=== PATIENT | male | born 1990 | race Two or more races ===

== ENCOUNTER 2025-03-17 01:09 | Emergency (ER) | payer OTHER ==
[~2025-03-17] VITALS: Ht 185.4 cm; Wt 136.4 kg
--- NOTE | 2025-03-17 01:40 | ED.PDOC ---
History of Present Illness HPI Comments This is a 35-year-old male who comes in with chief complaint of some slurred speech and facial droop with altered mental status. According to the family, they noticed that the patient was somewhat altered last night and then approximately 2 hours ago they woke up with the patient he was still somewhat altered. 911 was called and the patient was transported to our facility. Upon arrival, the patient is not really answering our questions appropriately. The paramedics state that he had pinpoint pupils and they did give him some Narcan without any significant relief. Time Seen by MD: 01:32 Reviewed Notes: Nurses Notes, Eclectic Doctor Notes, Medications, Allergies (No allergies to medications) Allergies: Coded Allergies: NO KNOWN ALLERGIES (Unverified , 03/17/25) Information Source: Patient, Emergency Med Personnel Mode of Arrival: EMS Severity: Moderate Timing: Hours (Symptoms started 2 hours ago) Duration: Since onset Prehospital treatment: Accucheck (Accu-Chek was 84), Fishing Rod Trimmer, IVF, Other (Narcan IV push) Associated signs and symptoms No associated chest pain or shortness for breath Past Medical History PAST MEDICAL HISTORY: HTN Surgical History: Denies all surgeries Surgical History (Other): Unknown surgical history Family History Family History: Reviewed,noncontributory to illness Social History Smoker: Cigarettes Alcohol: Denies ETOH Use Drugs: Denies Drug Use Lives In: Home Constitutional: denies: chills, diaphoresis, fatigue, fever, malaise, sweats, weakness, others EENTM: denies: blurred vision, double vision, ear bleeding, ear discharge, ear drainage, ear pain, ear ringing, eye pain, eye redness, hearing loss, mouth pain, mouth swelling, nasal discharge, nose bleeding, nose congestion, nose pain, photophobia, tearing, throat pain, throat swelling, voice changes, others Respiratory: denies: cough, hemoptysis, orthopnea, SOB at rest, shortness of breath, SOB with excertion, stridor, wheezing, others Cardiovascular: denies: chest pain, dizzy spells, diaphoresis, Dyspnea on exertion, edema, irregular heart beat, left arm pain, lightheadedness, palpitations, PND, syncope, others Gastrointestinal: denies: abdomen distended, abdominal pain, blood streaked bowels, constipated, diarrhea, dysphagia, difficulty swallowing, hematemesis, melena, nausea, poor appetite, poor fluid intake, rectal bleeding, rectal pain, vomiting, others Neurological: reports: others (Altered mental status); denies: dizziness, fainting, headache, left sided numbness, left sided weakness, numbness, paresthesia, pre-existing deficit, right sided numbness, right sided weakness, seizure, speech problems, tingling, tremors, weakness Musculoskeletal: denies: back pain, gout, joint pain, joint swelling, muscle pain, muscle stiffness, neck pain, others Integumetry: denies: bruises, change in color, change in hair/nails, dryness, laceration, lesions, lumps, rash, wounds, others Allergic/Immunocompromised: denies: Difficulty Healing, Frequent Infections, Hives, Itching, others Hematologic/Lymphatic: denies: anemia, blood clots, easy bleeding, easy bruising, swollen glands, others Endocrine: denies: excessive hunger, excessive sweating, excessive thirst, excessive urination, flushing, intolerance to cold, intolerance to heat, unexplained weight gain, unexplained weight loss, others Psychiatric: denies: anxiety, bipolar disorder, depression, hopeless, panic disorder, schizophrenia, sleepless, suicidal, others Physical Exam General Appearance: Moderate Distress, Obese HEENT: Normal ENT Inspection, Pharynx Normal, TMs Normal Neck: Full Range of Motion, Non-Tender, Normal, Normal Inspection Respiratory: Chest Non-Tender, Lungs Clear, No Accessory Muscle Use, No Respiratory Distress, Normal Breath Sounds Cardiovascular: No Edema, No JVD, No Murmur, No Gallop, Normal Peripheral Pulses, Regular Rate/Rhythm Breast Exam: Deferred Gastrointestinal: No Organomegaly, Non Tender, No Pulsatile Mass, Normal Bowel Sounds, Soft Genitalia: Deferred Pelvic: Deferred Rectal: Deferred Extremities: No calf tenderness, Normal capillary refill, Normal inspection, Normal range of motion, Non-tender, No pedal edema Musculoskeletal : Apperance: Normal 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 Was a procedure done?: No EKG EKG : Pulse Rate (adult): 92 [place]: Normal Cardiac Rhythm: NSR Differential Dx Considerations may include: Altered mental status, sepsis, CVA, electrolyte imbalance, UTI X-Ray, Labs, Meds, VS Vital Signs Date Time Temp Pulse Resp B/P (MAP) Pulse Ox O2 Delivery O2 Flow Rate FiO2 03/17/25 03:00 176/125 03/17/25 02:31 94 13 194/131 (152) 97 03/17/25 02:30 92 03/17/25 02:28 92 03/17/25 01:09 98.9 76 16 189/145 100 98.9 Lab Test 03/17/25 02:15 03/17/25 01:45 Range/Units Urine Color Light-yellow Yellow Urine Clarity Clear Clear Urine pH 6.5 5.0-9.0 Urine Specific [place] 1.014 1.001-1.035 Urine Protein Negative Negative Urine Ketones Negative Negative Urine Blood Negative Negative /uL Urine Nitrite Negative Negative Urine Bilirubin Negative Negative Urine Urobilinogen Normal Negative mg/dL Urine Leukocyte Esterase Negative Negative /uL Urine RBC 1 0 - 3 /hpf Urine Microscopic WBC < 1 0-3 /HPF Urine Squamous Epithelial Cells None seen <5 /hpf Urine Bacteria None seen None Seen /hpf Urine Glucose Normal Normal mg/dL Urine Opiates Screen Pending Urine Fentanyl Screen Pending Urine Barbiturates Screen Pending Urine Phencyclidine Screen Pending Urine Amphetamines Screen Pending Urine Benzodiazepines Screen Pending Urine Cocaine Screen Pending Urine Cannabinoids Screen Pending White Blood Count 8.2 4.4-10.8 10^3/uL Red Blood Count 6.06 H 4.5-5.90 10^6/uL Hemoglobin 16.1 13.5-17.5 g/dL Hematocrit 48.7 41.0-53.0 % Mean Corpuscular Volume 80.4 80.0-100.0 fL Mean Corpuscular Hemoglobin 26.5 L 28.0-32.0 pg Mean Corpuscular Hemoglobin Concent 33.0 32.0-36.0 g/dL Red Cell Distribution Width 14.5 H 11.8-14.3 % Platelet Count 218 140-450 10^3/uL Mean Platelet Volume 7.7 6.9-10.8 fL Neutrophils (%) (Auto) 70.3 37.0-80.0 % Lymphocytes (%) (Auto) 19.8 10.0-50.0 % Monocytes (%) (Auto) 7.5 0.0-12.0 % Eosinophils (%) (Auto) 2.0 0.0-7.0 % Basophils (%) (Auto) 0.4 0.0-2.0 % Neutrophils # (Auto) 5.7 1.6-8.6 10 ^3/uL Lymphocytes # (Auto) 1.6 0.4-5.4 10 ^3/uL Monocytes # (Auto) 0.6 0-1.3 10 ^3/uL Eosinophils # (Auto) 0.2 0-0.8 10 ^3/uL Basophils # (Auto) 0 0-0.2 10 ^3/uL Nucleated Red Blood Cells 0.1 % Prothrombin Time Pending Prothrombin Time INR Pending Activated Partial Thromboplast Time Pending Sodium Level 141 136-145 mmol/L Potassium Level 3.8 3.5-5.1 mmol/L Chloride Level 106 98-107 mmol/L Carbon Dioxide Level 27 20-31 mmol/L Anion Gap 8 5-15 Blood Urea Nitrogen 12 9-23 mg/dL Creatinine 0.93 0.700-1.30 mg/dL Glomerular Filtration Rate Calc 108 >90 mL/min BUN/Creatinine Ratio 12.9 10.0-20.0 Serum Glucose 103 74-106 mg/dL Calcium Level 9.0 8.7-10.4 mg/dL Plasma/Serum Blood Alcohol < 3.0 <10 mg/dL Current Medications Medications (Trade) Dose Ordered Sig/Garrett Route Start Time Stop Time Status Last Admin Levetiracetam 100 ml @ 400 mls/hr ONCE ONCE IV 03/17/25 03:00 03/17/25 03:14 03/17/25 02:55 Nicardipine/ Sodium Chloride 200 ml @ 50 mls/hr Q4H IV 03/17/25 03:00 03/17/25 03:00 CAT scan of the head shows: IMPRESSION: 1. 3.8 cm left basal ganglia intraparenchymal hemorrhage. Critical Result: Intracranial hemorrhage The patient was started on a nicardipine drip to address the patient's blood pressure The patient was also started on Keppra 1 g IV piggyback The patient's CBC is within normal limits The chemistry panel is within normal limits The urine test is negative The patient has now awakened and we did explain to him that he is going to be transferred. The patient denies any trauma at this time The patient is being transferred We did call Dr. velez at [facility]. The patient has been accepted The patient is being transferred by helicopter. Images Reviewed?: Images reviewed and evaluated by me Time of 1ST Reevaluation: 01:39 Reevaluation 1ST: Unchanged Patient Education/Counseling: Diagnosis, Treatment, Prognosis Family Education/Counseling: No Family Present SEPSIS Sepsis Screen Physician Orders Head Without Contrast (03/17/25 01:32) Drug Screen (03/17/25 01:32) Fishing Rod Trimmer (03/17/25 01:32) Pulse Oximetry (03/17/25 01:32) Blood Pressure (03/17/25 01:32) [place] Iv (03/17/25 01:32) Levetiracetam 1000 Mg/100ml (Levetiracet (03/17/25 03:00) Nicardipine 20mg/200ml (Cardene Iv) (03/17/25 03:00) PTPTT (03/17/25 02:50) Vital Signs Date Time Temp Pulse Resp B/P (MAP) Pulse Ox O2 Delivery O2 Flow Rate FiO2 03/17/25 03:00 176/125 03/17/25 02:31 94 13 194/131 (152) 97 03/17/25 02:30 92 03/17/25 02:28 92 03/17/25 01:09 98.9 76 16 189/145 100 98.9 Laboratory Tests Test 03/17/25 01:45 White Blood Count 8.2 10^3/uL (4.4-10.8) Medications Medications Dose Ordered Sig/Garrett Route Start Time Stop Time Status Last Admin Dose Admin Levetiracetam 100 ml @ 400 mls/hr ONCE ONCE IV 03/17/25 03:00 03/17/25 03:14 03/17/25 02:55 Nicardipine/ Sodium Chloride 200 ml @ 50 mls/hr Q4H IV 03/17/25 03:00 03/17/25 03:00 Departure 1 Departure Time of Disposition: 03:20 Impression: Primary Impression: Intracranial bleed Disposition: [facility] HOSPICE[facility]MEDICAL FACILITY Condition: Guarded Critical Care Note Critical Care Time?: Yes (35 min-critical care time only) Stability Stability form required: Yes Stable for transfer: Intended for transfer (Health plan request transfer), To designated facility Heart Score Heart Score: Heart Score Response (Comments) Value History N/A 0 EKG N/A 0 Age N/A 0 Risk Factors N/A 0 Troponin N/A 0 Total 0 ELIZABETH FISCHER MD Mar 17, 2025 01:40
[2025-03-17 02:06] LABS: Mean Corpuscular Hemoglobin 26.5 pg (28.0-32.0); Nucleated Red Blood Cells % 0.1 %
[2025-03-17 02:08] LABS: Chloride 106 mmol/L (98-107); Hematocrit 48.7 % (41.0-53.0); Hemoglobin 16.1 g/dL (13.5-17.5); Mean Corpuscular Volume 80.4 fL (80.0-100.0); Potassium 3.8 mmol/L (3.5-5.1); Sodium 141 mmol/L (136-145)
[2025-03-17 02:09] LABS: Anion Gap 8 (5-15); Carbon Dioxide 27 mmol/L (20-31)
[2025-03-17 02:10] LABS: Calcium 9.0 mg/dL (8.7-10.4)
[2025-03-17 02:14] LABS: BUN/Creatinine Ratio 12.9 (10.0-20.0); Blood Urea Nitrogen 12 mg/dL (9-23); Glucose 103 mg/dL (74-106)
--- NOTE | 2025-03-17 02:31 | ECG ---
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
[2025-03-17 02:41] LABS: Urine Protein, UAD Negative (Negative)
[2025-03-17 02:52] LABS: Cannabinoid Screen, Urine Neg (NEGATIVE)
[2025-03-17] MEDS: levETIRAcetam 1000 mg/100ml 100 ML IV ONE (02:55)
[2025-03-17] MEDS: SODIUM CHLORIDE 0.9% 500 ML IVB ONE (02:56)
--- NOTE | 2025-03-17 03:05 | DVH ---
EXAM: CT HEAD WITHOUT CONTRAST INDICATION: aloc TECHNIQUE: CT of the head without intravenous contrast. Radiation Dose Information: CT Dose: CTDI volume is 70.03 mGy. Dose-length product is 1239.59 mGy*cm The dose indicators for CT are the volume Computed Tomography (CT) Dose Index (CTDIvol) and the Dose Length Product (DLP), and are measured in units of mGy and mGy-cm, respectively. These indicators are not patient dose, but values generated from the CT scanner acquisition factors. The report includes radiation exposure data for exposures received during this examination. COMPARISON: None FINDINGS: There is acute intraparenchymal hemorrhage left basal ganglia estimating 3.8 x 2.7 x 2.3 cm. The ventricles appear appropriate in size and symmetry without intraventricular hemorrhage. No evidence of midline shift. Possible small scalp hematoma along the left occipital region. Mucosal sinus thickening of the right maxillary sinus. IMPRESSION: 1. 3.8 cm left basal ganglia intraparenchymal hemorrhage. Critical Result: Intracranial hemorrhage Findings discussed with Dr. Schwartz at 03/17/2025 06:03 AM EST, and acknowledged receipt and understanding of the findings. ..
[2025-03-17 03:16] LABS: INR 1.08 (0.9-1.15); Partial Thromboplastin Time 32.2 SEC (24.5-34.5); Prothrombin Time 11.4 sec (9.3-11.8)
[2025-03-17 03:31] LABS: Amphetamine Screen, Urine Pos (NEGATIVE); Barbiturate Scree,Urine Neg (NEGATIVE); Benzodiazephine Screen, Urine Neg (NEGATIVE); Cocaine Screen, Urine Neg (NEGATIVE); Opiate Scree,Urine Neg (NEGATIVE); Phencyclidine Screen, Urine Neg (NEGATIVE)
[2025-03-17 04:15] VITALS: BP 126/75; PULSE 79; RESP 20; TEMP 98.7; O2SAT 100
--- NOTE | 2025-03-17 10:49 | ECG ---
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
== END 2025-03-17 04:30 | disposition hospice, inpatient (51) ==
LOC: EDBD 01:09 → ER 01:09
DX: I62.9 Nontraumatic intracranial hemorrhage, unspecified (principal); F17.210 Nicotine dependence, cigarettes, uncomplicated; I10 Essential (primary) hypertension
CPT/HCPCS: 36415; 70450; 80048; 80307; 80320; 81001; 85025; 85610; 85730; 93005; 96374; 99291; J1953; J2404